=== PATIENT | male | born 1960 | race African-American/Black ===

== ENCOUNTER 2021-12-10 13:33 | Emergency (ER) | payer MEDICAID, SELFPAY | END 2021-12-10 16:08 | disposition home or self-care (01) | LOC: ERS 13:33 | DX: R41.82 Altered mental status, unspecified (principal) | CPT/HCPCS: 99284 ==

== ENCOUNTER 2023-04-11 17:47 | Emergency (ER) | payer SELFPAY ==
[2023-04-11 18:18] LABS: #Eosinphils 0.2 thou/uL (0.0-0.7); #Monocytes 0.5 thou/uL (0.11-0.59); %Basophils 0.3 % (0.0-1.0); %Eosinophils 3.8 % (0.0-10.0); %Lymphocytes 25.1 % (21.0-51.0); %Neutrophils 62.6 % (42.0-75.0); Hematocrit 38.4 % (42.0-52.0); Hemoglobin 12.4 g/dL (14.0-18.0); Mean Corpuscular HGB CONC 32.3 g/dL (32.0-36.0); Mean Corpuscular Hemoglobin 24.4 pg (27.0-31.0); Mean Corpuscular Volume 75.6 fl (78.0-98.0); Mean Platelet Volume 10.5 fL (7.4-10.4); Platelet Count 208 10x3/uL (130-400); RBC Distribution Width 15.9 % (11.5-14.5); Red Blood Cell (RBC) Count 5.08 mill/uL (4.70-6.10); White Blood Cell (WBC) Count 6.3 10x3/uL (4.8-10.8)
[2023-04-11] MEDS ORDERED: Sodium Chloride 0.9% 100 ML ONE ×2 (18:27)
[2023-04-11] MEDS ORDERED: CEFAZOLIN 2 GM VIAL ONE (18:27)
[2023-04-11] MEDS ORDERED: Morphine 4 MG/ML VIAL ONE (18:27)
[2023-04-11] MEDS ORDERED: Boostrix 0.5 ML (Tdap) VIAL (>/=7 yrs of age) ONE (18:27)
[2023-04-11 18:54] LABS: ALT (SGPT) 14 U/L (8-55); AST (SGOT) 17 U/L (5-34); Albumin 3.6 g/dL (3.5-5.0); Alkaline Phosphatase 95 U/L (40-110); Anion Gap 12 mmol/L (10-20); BUN (Urea Nitrogen) 20 mg/dL (8.4-25.7); Bilirubin, Total 0.3 mg/dL (0.2-1.2); CK (CPK) 326 U/L (30-200); Calc. Creatinine Clearance 0 mL/min (70-130); Calcium 8.5 mg/dL (7.8-10.44); Carbon Dioxide 23 mmol/L (22-29); Chloride 109 mmol/L (98-107); Estimated GFR 99; Globulin 2.7 g/dL (2.4-3.5); Glucose 149 mg/dL (70-105); Potassium 4.2 mmol/L (3.5-5.1); Protein, Total 6.3 g/dL (6.0-8.3); Sodium 140 mmol/L (136-145)
== END 2023-04-11 20:50 | disposition home or self-care (01) ==
LOC: ERS 17:47
DX: T20.10XA Burn of first degree of head, face, and neck, unspecified site, initial encounter (principal); T23.102A Burn of first degree of left hand, unspecified site, initial encounter; T31.0 Burns involving less than 10% of body surface; E11.9 Type 2 diabetes mellitus without complications; F17.210 Nicotine dependence, cigarettes, uncomplicated; W36.3XXA Explosion and rupture of pressurized-gas tank, initial encounter
CPT/HCPCS: 36415; 71045; 80053; 82550; 83605; 85025; 90471; 90715; 93005; 94760; 96365; 96375; J2270; J3490